=== PATIENT | female | born 1940 | race Caucasian/White ===

== ENCOUNTER → 2024-05-09 | Outpatient (CLI) | payer MEDICARE, SELFPAY ==
--- NOTE | 2024-05-09 13:48 | NEURO ---
NCS and/or EMG Patient Report Ordering Doctor: Harmony Byers DATE OF SERVICE: 05/09/24 Sherri presents with complaints of numbness and tingling in the right hand, primarily in digits 3 through 5. Electrodiagnostic findings: Right median motor nerve demonstrates prolonged latency with normal amplitude and conduction velocity. Right ulnar motor response demonstrates normal distal latency and amplitude with a greater than 70% drop in conduction velocity across the elbow. Right ulnar F?wave. Right median sensory latency at the wrist. Normal ulnar and radial sensory responses. Needle EMG testing was performed in the right upper limb. 1+ fibrillations are noted in the first dorsal interosseous and flexor carpi ulnaris. No denervation noted in the cervical paraspinals. Diagnostic impression: This is an abnormal study in the right upper limb. 1. Electrodiagnostic findings suggestive for right sided ulnar neuropathy. This is consistent with a severe right cubital tunnel syndrome. 2. Electrodiagnostic evidence suggestive of right-sided median mononeuropathy. This consistent with a moderate right carpal tunnel syndrome. Multi Select Codes Neurology Neurology Interp Codes: 36983-57 Musc test done w/n test comp (interp) and 55929-83 Nrv cndj test 7-8 studies (interp)
== END | disposition home or self-care (01) ==
PROVIDERS: PCP Nurse Practitioner Family; Referring Provider Nurse Practitioner Family; Visit Provider Nurse Practitioner Family
DX: R20.2 Paresthesia of skin (principal)
CPT/HCPCS: 95886; 95910

== ENCOUNTER → 2024-08-01 | Outpatient (CLI) | payer MEDICARE, SELFPAY ==
--- NOTE | 2024-08-01 12:17 | BI_ITS ---
MAMMOGRAPHY - BILATERAL SCREENING REASON FOR EXAM: Female, 84 years old. Routine annual screening examination. PERTINENT HISTORY: Non-contributory. TECHNIQUE: Digital bilateral breast mariely (3D mammographic acquisition) in the CC and MLO projections. 2-D mediolateral oblique (MLO) and craniocaudad (CC) views of both breasts were obtained. CAD: Full Field Digital Mammography with Computer Added Detection was performed. COMPARISON: Comparison is made with prior outside examination dated July 18, 2023. FINDINGS: Breast Composition: There are scattered areas of fibroglandular density. There are no dominant masses or suspicious calcifications. Stable 6.9 mm well-defined retroareolar nodule in the left breast. Correlation with ultrasound recommended. Stable small bilateral axillary lymph nodes. No other significant abnormalities are identified. BI/SCRN MAMM (CAD)W/MARIELY BILAT IMPRESSION: Stable 6.9 mm well-defined retroareolar nodule in the left breast. Correlation with ultrasound recommended. ASSESSMENT CATEGORY: BIRADS Category 0: Incomplete. Need additional imaging evaluation. A letter regarding these results will be sent to the patient by the facility within 30 days. Approximately 10% of breast cancers are not detected by mammography. A normal mammogram should not delay biopsy of a clinically suspicious abnormality. [id number] Electronically Signed: Martin Pineda MD at 15:12 EST ,
== END | disposition home or self-care (01) ==
LOC: OPBI 12:17
PROVIDERS: PCP Nurse Practitioner Family; Referring Provider Nurse Practitioner Family; Visit Provider Nurse Practitioner Family
DX: Z12.31 Encounter for screening mammogram for malignant neoplasm of breast (principal)
CPT/HCPCS: 77063; 77067

== ENCOUNTER → 2024-10-12 | Outpatient (CLI) | payer MEDICARE, SELFPAY ==
--- NOTE | 2024-10-12 14:00 | US_ITS ---
PROCEDURE: BREAST LIMITED UNILATERAL REASON FOR EXAM: Abnormal screening mammogram. COMPARISON: Comparison is made with prior mammogram dated August 01, 2024. TECHNIQUE: Targeted breast ultrasound. FINDINGS: LEFT: Ultrasound targeted to the retroareolar region at the left breast. The breast tissue appears sonographically normal. There is a 7 mm x 6 mm x 3 mm well-defined hypoechoic nodule with a central fatty hilum suggestive of a benign-appearing lymph node. US/Breast Limited Unilateral IMPRESSION: The mammographic abnormality corresponds to a benign-appearing lymph node. BI-RADS 2: BENIGN. RECOMMEND ANNUAL MAMMOGRAPHIC SCREENING. Reading Location: [facility]
== END | disposition home or self-care (01) ==
LOC: OPUS 13:54
PROVIDERS: PCP Nurse Practitioner Family; Referring Provider Nurse Practitioner Family; Visit Provider Nurse Practitioner Family
DX: N63.20 Unspecified lump in the left breast, unspecified quadrant (principal); R92.8 Other abnormal and inconclusive findings on diagnostic imaging of breast
CPT/HCPCS: 76642

== ENCOUNTER → 2024-11-27 | Outpatient (CLI) | payer MEDICARE, SELFPAY ==
--- NOTE | 2024-11-27 12:53 | CDU_ITS ---
Reason For Study Reason For Study: Stenosis Rt. Velocities/BP Lt. Velocities/BP Prox CCA 53.6/5.4 cm/sec. Prox CCA 86.9/5.7 cm/sec. Mid CCA 56.7/8.4 cm/sec. Mid CCA 73.2/4.4 cm/sec. Dist CCA 50.6/9.1 cm/sec. Dist CCA 68.3/4.4 cm/sec. Prox ICA 218.3/9.4 cm/sec. Prox ICA 61.4/11.6 cm/sec. Mid ICA 67.3/15.3 cm/sec. Mid ICA 54.4/14.6 cm/sec. Dist ICA 53.5/16.6 cm/sec. Dist ICA 60.6/17.3 cm/sec. Rt. ICA/CCA = 3.9. Lt. ICA/CCA = 0.8. Prox ECA 134.4/0.0 cm/sec. Prox ECA 79.3/0.0 cm/sec. Rt. Vert. 72.1/11.7 cm/sec. Lt. Vert. 62.2/10.6 cm/sec. Right Extracranial There is intimal thickening but no significant atherosclerotic plaque noted in the right common carotid artery. There is heterogeneous, irregular atherosclerotic plaque noted in the right internal carotid artery. The right internal carotid artery is very tortuous. There is intimal thickening but no significant atherosclerotic plaque noted in the right external carotid artery. Antegrade flow is noted in the right vertebral artery. Left Extracranial There is intimal thickening but no significant atherosclerotic plaque noted in the left common carotid artery. There is intimal thickening but no significant atherosclerotic plaque noted in the left internal carotid artery. There is intimal thickening but no significant atherosclerotic plaque noted in the left external carotid artery. Antegrade flow is noted in the left vertebral artery. Procedure Carotid Duplex [id number]. This is a Carotid Duplex examination using B-mode, color flow and specral Doppler. Exam performed in department. VL/Carotid Duplex Ultrasound Interpretation Summary Moderate (50-69%) stenosis right extracranial internal carotid. Mild (<50%) stenosis left extracranial internal carotid. Patent and antegrade vertebrals bilaterally. Ordering Physician: Harmony Byers Referring Physician: Harmony Byers Performed By: Bridget Alanis RVT
== END | disposition home or self-care (01) ==
PROVIDERS: PCP Nurse Practitioner Family; Referring Provider Nurse Practitioner Family; Visit Provider Nurse Practitioner Family
DX: I65.23 Occlusion and stenosis of bilateral carotid arteries (principal)
CPT/HCPCS: 93880

== ENCOUNTER → 2024-12-04 | Outpatient (CLI) | payer MEDICARE, SELFPAY ==
--- NOTE | 2024-12-04 13:40 | BD_ITS ---
PROCEDURE: DEXA BONE DENSITY STUDY 12/04/2024 REASON FOR EXAM: Osteoporosis F, age 84 y/o . TECHNIQUE: DXA scan of the lumbar spine and left hip, using make and model. REFERENCE LINKS: IS[facility] Adult Positions COMPARISON: None available FINDINGS: BMD and T-SCORES Lumbar spine: 0.764 g/cm2, T-Score -2.5 L1 through L4 Left femoral neck: 0.570 g/cm2, T-Score -2.5 Femoral neck comparison data not recommended for monitoring change. Left total hip: 0.763 g/cm2, T-Score -1.5 Right femoral neck: 0.673 g/cm2, T-Score -1.6 Femoral neck comparison data not recommended for monitoring change. Right total hip: 0.855 g/cm2, T-Score -0.7 Fracture Risk Calculation: FRAX (10-year Fracture Risk) Score: FRAX scores should never be reported in a patient with osteoporosis on DEXA or for any patient that is on bone medication. The patient meet the pharmacological treatment recommendations for prevention of osteoporosis BD/Dexa Bone Density Study IMPRESSION: OSTEOPOROSIS. Recommend follow-up as clinically warranted. Reading Location: [id number]
== END | disposition home or self-care (01) ==
LOC: OPBD 13:39
PROVIDERS: PCP Nurse Practitioner Family; Referring Provider Nurse Practitioner Family; Visit Provider Nurse Practitioner Family
DX: Z78.0 Asymptomatic menopausal state (principal)
CPT/HCPCS: 77080